=== PATIENT | female | born 1965 | race Caucasian/White ===

== ENCOUNTER 2017-05-21 19:57 | Emergency (ER) | payer MEDICARE, MEDICAID ==
[~2017-05-21] VITALS: Ht 172.7 cm; Wt 99.8 kg
[2017-05-21] MEDS ORDERED: HYDR-971 PO (20:22)
[2017-05-21] MEDS ORDERED: HYOS0.1264 PO (20:23)
[2017-05-21] MEDS ORDERED: CEPH-264 PO (20:24)
[2017-05-21] MEDS ORDERED: DULO60CA6 PO (20:24)
[2017-05-21 20:36] LABS: BILIRUBIN,URINE NEGATIVE (NEG); GLUCOSE,URINE NEGATIVE (NEG); NITRITE,URINE NEGATIVE (NEG); PH,URINE 6.5; PROTEIN,URINE 100 mg/dL (NEG-TRACE); UROBILINOGEN,URINE 0.2 mg/dL (0.2 mg/dL)
[2017-05-21 20:44] LABS: BACTERIA,URINE 0 /HPF (0-FEW); RBC,URINE TNTC /HPF (0-2)
[2017-05-21] MEDS ORDERED: IV NORMAL SALINE 1000ML BAG 1,000 ML IV ONE ×2 (20:45→23:00)
[2017-05-21] MEDS ORDERED: fentaNYL PF VIAL 100 MCG/2 ML VIAL IV ONE (20:45)
[2017-05-21] MEDS ORDERED: ONDANSETRON PF 4 MG/2 ML VIAL. IV ONE ×2 (20:45→23:00)
[2017-05-21 21:15] LABS: BASO # 0.1 x10^3/uL (0.0-0.2); BASO % 1 % (0-3); EOS % 1 % (0-3); HEMATOCRIT 39.1 % (36.0-47.0); HEMOGLOBIN 13.4 g/dL (12.0-15.5); LYMPH # 2.8 x10^3/uL (1.0-4.8); LYMPH % 22 % (24-48); MEAN CORPUSCULAR HEMOGLOBIN 32 pg (25-35); MEAN CORPUSCULAR HGB CONC 34 g/dL (31-37); MEAN CORPUSCULAR VOLUME 93 fL (79-100); MONO % 9 % (0-9); NEUT % 67 % (31-73); PLATELET COUNT 204 x10^3/uL (140-400); RED BLOOD COUNT 4.22 x10^6/uL (3.50-5.40); RED CELL DISTRIBUTION WIDTH 13.3 % (11.5-14.5); WHITE BLOOD COUNT 12.6 x10^3/uL (4.0-11.0)
[2017-05-21 21:17] LABS: CALCIUM 9.2 mg/dL (8.5-10.1); CREATININE 1.1 mg/dL (0.6-1.0); GFR 52.8; POTASSIUM 3.8 mmol/L (3.5-5.1)
[2017-05-21 21:19] LABS: NEG OBC SER NEG; POS OBC SER POS
[2017-05-21 21:22] LABS: ALBUMIN 3.4 g/dL (3.4-5.0); ALBUMIN/GLOBULIN RATIO 0.8 (1.0-1.7); TOTAL BILIRUBIN 0.4 mg/dL (0.2-1.0); TOTAL PROTEIN 7.6 g/dL (6.4-8.2)
--- NOTE | 2017-05-21 21:52 | PHYS DOC ---
Past Medical History Past Medical History: Kidney Infection, Kidney Stone, Other Past Surgical History: Hysterectomy, Tubal ligation Additional Past Surgical Histo: CYSTOSCOPY Drug Use: None Adult General Chief Complaint Chief Complaint: FEVER HPI HPI Patient is a 51 year old female history of pyelonephritis and kidney stones treated for kidney stones with cystoscopy and stent placement at [facility] days ago. Patient arch home on Keflex. She reports persistent left flank pain, urinary frequency and hematuria since surgery. Reports fever 24 hours. Temperature triage is 102. Reports generally malaise, chills and nausea. No vomiting. No other acute symptoms or complaints. Patient contacted her [facility] urologist earlier and is instructed to go to the ED.] Review of Systems Review of Systems Review symptoms as per history of present illness. All other review symptoms are negative. Current Medications Current Medications Current Medications Medications (Trade) Dose Ordered Sig/Bessy Start Time Stop Time Status Last Admin Dose Admin Acetaminophen (Tylenol) 1,000 mg 1X ONCE 05/21/17 23:00 05/21/17 23:01 DC 05/21/17 23:02 1,000 MG Cefepime HCl 2 gm/ Dextrose 100 ml @ 200 mls/hr ONCE ONCE 05/21/17 23:00 05/21/17 23:29 DC 05/21/17 23:28 200 MLS/HR Fentanyl Citrate (Fentanyl 2ml Vial) 50 mcg 1X ONCE 05/21/17 20:45 05/21/17 20:46 DC 05/21/17 21:01 50 MCG Morphine Sulfate 4 mg 1X ONCE 05/21/17 23:00 05/21/17 23:01 DC 05/21/17 23:04 4 MG Ondansetron HCl (Zofran) 4 mg 1X ONCE 05/21/17 23:00 05/21/17 23:01 DC 05/21/17 23:04 4 MG Sodium Chloride 1,000 ml @ 1,000 mls/hr 1X ONCE 05/21/17 23:00 05/21/17 23:59 05/21/17 23:10 1,000 MLS/HR Allergies Allergies Allergies Coded Allergies Type Severity Reaction Last Updated Verified Sulfa (Sulfonamide Antibiotics) Allergy Unknown FACIAL SWELLING 05/21/17 Yes levofloxacin Allergy Unknown 05/21/17 Yes Physical Exam Physical Exam Constitutional: Well developed, well nourished, uncomfortable appearing, no acute distress. [] HENT: Normocephalic, atraumatic, bilateral external ears normal, oropharynx moist, no oral exudates, nose normal. [] Eyes: PERRLA, EOMI, conjunctiva normal, no discharge. [] Neck: Normal range of motion, no tenderness, supple, no stridor. [] Cardiovascular:Heart rate regular rhythm, no murmur [] Lungs & Thorax: Bilateral breath sounds clear to auscultation [] Abdomen: Bowel sounds normal, soft, no mild left lower quadrant pain, tenderness to palpation no rebound rigidity or guarding. [] Skin: Warm, dry, no erythema, no rash. [] Back: No tenderness, left flank pain, tenderness. [] Extremities: No tenderness, no cyanosis, no clubbing, ROM intact, no edema. [] Neurologic: Alert and oriented X 3, normal motor function, normal sensory function, no focal deficits noted. [] Psychologic: Affect normal, judgement normal, mood normal. [] Current Patient Data Vital Signs Vital Signs Date Time Temp Pulse Resp B/P (MAP) Pulse Ox O2 Delivery O2 Flow Rate FiO2 05/21/17 23:10 103 22 128/64 (85) 91 Room Air 05/21/17 22:38 102.6 102.6 Lab Values Laboratory Tests Test 05/21/17 20:03 05/21/17 20:50 Urine Collection Type Unknown Urine Color Red Urine Clarity Cloudy Urine pH 6.5 Urine Specific Strang 1.010 Urine Protein 100 mg/dL (NEG-TRACE) Urine Glucose (UA) Negative mg/dL (NEG) Urine Ketones (Stick) Negative mg/dL (NEG) Urine Blood Large (NEG) Urine Nitrite Negative (NEG) Urine Bilirubin Negative (NEG) Urine Urobilinogen Dipstick 0.2 mg/dL (0.2 mg/dL) Urine Leukocyte Esterase Small (NEG) Urine RBC Tntc /HPF (0-2) Urine WBC 11-20 /HPF (0-4) Urine Bacteria 0 /HPF (0-FEW) White Blood Count 12.6 x10^3/uL (4.0-11.0) H Red Blood Count 4.22 x10^6/uL (3.50-5.40) Hemoglobin 13.4 g/dL (12.0-15.5) Hematocrit 39.1 % (36.0-47.0) Mean Corpuscular Volume 93 fL (79-100) Mean Corpuscular Hemoglobin 32 pg (25-35) Mean Corpuscular Hemoglobin Concent 34 g/dL (31-37) Red Cell Distribution Width 13.3 % (11.5-14.5) Platelet Count 204 x10^3/uL (140-400) Neutrophils (%) (Auto) 67 % (31-73) Lymphocytes (%) (Auto) 22 % (24-48) L Monocytes (%) (Auto) 9 % (0-9) Eosinophils (%) (Auto) 1 % (0-3) Basophils (%) (Auto) 1 % (0-3) Neutrophils # (Auto) 8.4 x10^3uL (1.8-7.7) H Lymphocytes # (Auto) 2.8 x10^3/uL (1.0-4.8) Monocytes # (Auto) 1.1 x10^3/uL (0.0-1.1) Eosinophils # (Auto) 0.1 x10^3/uL (0.0-0.7) Basophils # (Auto) 0.1 x10^3/uL (0.0-0.2) Sodium Level 138 mmol/L (136-145) Potassium Level 3.8 mmol/L (3.5-5.1) Chloride Level 99 mmol/L (98-107) Carbon Dioxide Level 27 mmol/L (21-32) Anion Gap 12 (6-14) Blood Urea Nitrogen 19 mg/dL (7-20) Creatinine 1.1 mg/dL (0.6-1.0) H Estimated GFR (Cockcroft-Gault) 52.8 BUN/Creatinine Ratio 17 (6-20) Glucose Level 112 mg/dL (70-99) H Lactic Acid Level 1.1 mmol/L (0.4-2.0) Calcium Level 9.2 mg/dL (8.5-10.1) Total Bilirubin 0.4 mg/dL (0.2-1.0) Aspartate Amino Transferase (AST) 19 U/L (15-37) Alanine Aminotransferase (ALT) 22 U/L (14-59) Alkaline Phosphatase 99 U/L (46-116) Total Protein 7.6 g/dL (6.4-8.2) Albumin 3.4 g/dL (3.4-5.0) Albumin/Globulin Ratio 0.8 (1.0-1.7) L Serum Test, Qualitative Negative (NEG) Laboratory Tests 05/21/17 20:50 Laboratory Tests 05/21/17 20:50 EKG EKG [] Radiology/Procedures Radiology/Procedures [CT abdomen pelvis: Subcapsular hematoma, ureter stent, inflammatory changes per radiology report.] Course & Med Decision Making Course & Med Decision Making Pertinent Labs and Imaging studies reviewed. (See chart for details) Patient with acute febrile illness, subcapsular hematoma, concern for pyelonephritis. Empiric abx and IVF given, Started. Patient septic at [facility] on the [place] per Dr. Hattie Perez. Images clouded. Patient's blood pressure stable. Dragon Disclaimer Dragon Disclaimer This electronic medical record was generated, in whole or in part, using a voice recognition dictation system. Departure Departure Impression: Primary Impression: Acute pyelonephritis Disposition: 02 TRANSFER T-[facility] Condition: STABLE Referrals: NO PCP (PCP) ELIZABETH SHERIFF DO May 21, 2017 21:51
--- NOTE | 2017-05-21 22:33 | RAD ---
PQRS Compliance Statement: One or more of the following individualized dose reduction techniques were utilized for this examination: 1. Automated exposure control 2. Adjustment of the mA and/or kV according to patient size 3. Use of iterative reconstruction technique CT ABDOMEN PELVIS WO CONTRAST Clinical Indication: LT FLANK PAIN, FEVER, SX 2 DAYS AGO LT KIDNEY , STONE REMOVED, HX HYSTERECTOMY, KENNY, Comparison: None. Technique: Helical CT imaging of the abdomen and pelvis is performed without IV or oral contrast. Findings: Evaluation of solid organs and bowel is limited without oral and IV contrast, decreasing sensitivity for detection of pathology. There is atelectasis in the left lung bases, moderate. Mild atelectasis posterior right lower lobe. Cardiac size normal. Cholecystectomy. Liver, spleen, pancreas, abdominal aorta, right adrenal gland, and right kidney are normal. Limited visualization of the left adrenal gland due to surrounding induration. There is a left ureteral stent. Position is appropriate. There is periureteral stranding. There is moderate left perinephric stranding. There is a crescentic hyperdensity of the lateral left kidney that is likely a subcapsular hematoma that measures approximately 5.5 cm AP by 2 7 m transverse by 7.9 cm craniocaudal. There are several sub-5 mm nonobstructing left renal calculi. No ureteral calculus is seen. Stomach unremarkable. No dilated small bowel. There are a few diverticula the colon without inflammation. There is no colon wall thickening. Appendix appears normal. Urinary bladder not well distended accentuating wall thickness. Uterus surgically absent. No pelvic free fluid. No acute bone abnormality. IMPRESSION: 1. There is left subcapsular hematoma. There is moderate left perinephric stranding and periureteral stranding. There is left ureteral stent in appropriate position. There are several sub-5 mm nonobstructing left renal calculi. Suggest interval follow-up of the subcapsular hematoma with ultrasound. 2. Moderate left lung base atelectasis. Electronically signed by: Todd Stone MD (05/21/2017 10:29 PM) [id number]
[2017-05-21] MEDS ORDERED: MORPHINE SULFATE 4 MG/ML DISP.SYRIN. IV ONE (23:00)
[2017-05-21] MEDS ORDERED: CEFEPIME HCL 2 GM in IV DEXTROSE 5% 100 ML IV ONE (23:00)
[2017-05-21] MEDS ORDERED: ACETAMINOPHEN 500 MG TABLET PO ONE (23:00)
[2017-05-22 01:28] VITALS: BP 124/64
[2017-05-22] MEDS ORDERED: CEFEPIME HCL 2 GM in IV DEXTROSE 5% 100 ML IV SCH (06:00)
== END 2017-05-22 01:42 | disposition short-term general hospital (02) ==
LOC: ER 19:57
DX: N10 Acute pyelonephritis (principal); Z88.1 Allergy status to other antibiotic agents; Z88.2 Allergy status to sulfonamides; Z87.442 Personal history of urinary calculi; Z90.710 Acquired absence of both cervix and uterus; Z98.51 Tubal ligation status
CPT/HCPCS: 36415; 74176; 80053; 81001; 83605; 84703; 85025; 87040; 87086; 96361; 96365; 96375; 96376; 99285; J0692; J2270; J2405; J3010; J7030